=== PATIENT | male | born 1940 | race Caucasian/White ===

== ENCOUNTER → 2020-02-20 | Outpatient (CLI) | payer MEDICARE ==
--- NOTE | 2020-03-25 09:45 | REP ---
LEFT KNEE SERIES: HISTORY: Medial knee pain. Twisting injury 5 days prior. FINDINGS: 5-views of the left knee demonstrate left knee arthroplasty components in good position. There is vascular calcification. No fracture is seen. There is fullness in the region of the suprapatellar bursa suggestive of a knee joint effusion, moderate to large in degree. There is nonarticular spurring at the superior pole of the patella at the quadriceps tendon insertion. IMPRESSION: Status post left knee arthroplasty. Probable moderate to large effusion. Quadriceps tendon insertion. No acute bony abnormality or fracture seen. MTDD
== END ==
LOC: M WUC 17:22
PROVIDERS: ATTEND Nurse Practitioner Family
DX: M25.562 Pain in left knee (principal); Z96.652 Presence of left artificial knee joint